=== PATIENT | female | born 1960 | race Caucasian/White ===

== ENCOUNTER 2020-07-11 07:45 | Day surgery (SDC) | payer BC, OTHER ==
[2020-07-03 12:24] VITALS: BMI 31.2
[2020-07-11] MEDS ORDERED: MIDAZOLAM HCL 2 MG/2 ML SINGLE DOSE VIAL ONE ×2 (10:08→11:34)
[2020-07-11] MEDS ORDERED: BENZOIN/ALOE VERA/STORAX/TOLU 58 ML BOTTLE ONE (10:10)
[2020-07-11] MEDS ORDERED: PROPOFOL 20 ML ONE ×2 (10:46)
[2020-07-11] MEDS ORDERED: oxyCODONE HCL 5 MG TABLET PO PRN (12:03)
[2020-07-11] MEDS ORDERED: ONDANSETRON 4 MG/2 ML VIAL IVPUSH PRN (12:03)
[2020-07-11] MEDS ORDERED: PROMETHAZINE HCL 25 MG/1 ML VIAL IVPUSH PRN (12:03)
[2020-07-11] MEDS ORDERED: LACTATED RINGERS SOLUTION 1,000 ML IV SCH (12:15)
[2020-07-11 14:40] VITALS: PULSE 69; TEMP 98
[2020-07-11 16:28] LABS: HIV INTERPRETATION NEGATIVE (NEGATIVE)
[2020-07-11 16:43] VITALS: BP 125/67
== END 2020-07-11 16:10 | disposition home or self-care (01) ==
LOC: FASU 07:45
PROVIDERS: ATTEND Orthopaedic Surgery Adult Reconstructive Orthopaedic Surgery
PROC: 0LQ10ZZ Repair Right Shoulder Tendon, Open Approach (ICD-10-PCS; 2020-07-11)
PROC: 0PB90ZZ Excision of Right Clavicle, Open Approach (ICD-10-PCS; principal; 2020-07-11 11:24)
PROC: 0MN10ZZ Release Right Shoulder Bursa and Ligament, Open Approach (ICD-10-PCS; 2020-07-11 11:24)
DX: M75.41 Impingement syndrome of right shoulder (principal); M75.121 Complete rotator cuff tear or rupture of right shoulder, not specified as traumatic
CPT/HCPCS: 36415; 84460; 86803; 87340; 87389; 88304-TC; 88311-TC; 94760